=== PATIENT | male | born 1970 | race Caucasian/White ===

== ENCOUNTER 2018-05-18 16:30 | Emergency (ER) | payer BC ==
[2018-05-18] MEDS ORDERED: NS(*) 0.9% 1000 ML BAG 1,000 ML IV ONE (16:41)
[2018-05-18] MEDS ORDERED: KETOROLAC 15 MG/ML VIAL IVP ONE (16:45)
--- NOTE | 2018-05-18 16:51 | ER Report ---
History and Physical Time Seen By MD: 16:39 Hx. of Stated Complaint: PATIENT STATES THAT AROUND 0930 PATIENT STARTED HAVING PAIN AT THE TIP OF HIS PENIS; IT PROGRESSED TO HIS BACK; PAIN HAS GOTTEN WORSE SINCE THEN; PAIN IS AT 9 HPI/ROS Chief Complaint: "kidney stone" HPI: 47-year-old male presents with right sided abdominal and right sided lower back pain. States he has a history of kidney stones and had one last month but that last time the kidney stones have given him this much pain was 19 years ago. Reports the pain started this morning and he felt buring at his penis but the pain has "worked its way up" and he now has abdominal pain and lower right sided back pain. The pain is a 9/10. Associated nausea and vomiting. Reports vomiting 3 times this morning. No treatments tried, no other associated symptoms. ROS: Constitutional: denies fever, chills or night sweats HEENT: denies cough or congestion Respiratory: denies shortness of breath, denies difficulty breathing CV: denies chest pain or palpations GI: denies nausea or vomiting, denies constipation or diarrhea, reports abdominal pain : reports pain with urination, reports burning of the penis Musculoskeletal: reports lower right sided back pain, denies left sided CVA tenderness Allergies: Coded Allergies: No Known Drug Allergies (Unverified , 05/18/18) Home Meds Active Scripts Hydrocodone Bit/Acetaminophen (HYDROCODON-ACETAMINOPHEN 5-325) 1 Each Tablet, 1 EACH PO Q4-6H Y for PAIN for 3 Days, #12 TAB Prov:RA METZP 05/18/18 Tamsulosin Hcl (FLOMAX) 0.4 Mg Cap.er.24h, 0.4 MG PO DAILY for 30 Days, #30 CAP Prov:RA METZP 05/18/18 Ketorolac Tromethamine (KETOROLAC TROMETHAMINE) 10 Mg Tab, 10 MG PO Q6H for 5 Days, #20 TAB Prov:RA METZ [employer]IL [employer]IST[employer] 05/18/18 Ondansetron (ZOFRAN ODT) 4 Mg Tab.rapdis, 4 MG PO Q6H Y for NAUSEA/VOMITING, # 20 TAB.JOSE Prov:RA METZP 05/18/18 Past Medical/Surgical History kidney stones, left knee replacement Reviewed Nurses Notes: Yes Constitutional Vital Sign - Last 24 Hours 05/18/18 05/18/18 05/18/18 05/18/18 16:34 16:35 17:40 18:00 Temp 97.4 Pulse 53 77 Resp 17 B/P (MAP) 143/89 143/89 (107) 132/83 (99) 119/79 (92) Pulse Ox 98 90 O2 Delivery Room Air 05/18/18 18:20 B/P (MAP) 117/74 (88) Intake and Output 05/18/18 05/18/18 05/19/18 15:00 23:00 07:00 Intake Total 1000 ml Balance 1000 ml Physical Exam Physical Examination: General: 47-year-old male passing the room in pain HEENT: normocephalic, atraumatic Respiratory: BL equal respiratory excursion, CTA BL CV: Clear S1 S2, no murmur GI: nondistended, normoactive BS x 4, RLQ tenderness, no suprapubic pain, no left lower or upper quadrant pain Musculoskeletal: moves all extremities Differential Diagnoses: kidney stone, UTI, urinary retention, acute abdomen Medical Decision Making Data Points Result Diagram: 05/18/18 1647 05/18/18 1647 Laboratory Hematology Test 05/18/18 16:47 Red Blood Count 5.01 M/uL (4.00-5.60) Mean Corpuscular Volume 89.5 fL (80.0-96.0) Mean Corpuscular Hemoglobin 31.8 pg (26.0-33.0) Mean Corpuscular Hemoglobin Concent 35.5 g/dL (32.0-36.0) Red Cell Distribution Width 14.1 % (11.5-14.5) Mean Platelet Volume 6.5 fL (7.2-11.1) Neutrophils (%) (Auto) 68.8 % (39.4-72.5) Lymphocytes (%) (Auto) 23.4 % (17.6-49.6) Monocytes (%) (Auto) 6.2 % (4.1-12.4) Eosinophils (%) (Auto) 1.1 % (0.4-6.7) Basophils (%) (Auto) 0.5 % (0.3-1.4) Nucleated RBC Relative Count (auto) 0.1 /100WBC Neutrophils # (Auto) 10.5 K/uL (2.0-7.4) Lymphocytes # (Auto) 3.6 K/uL (1.3-3.6) Monocytes # (Auto) 0.9 K/uL (0.3-1.0) Eosinophils # (Auto) 0.2 K/uL (0.0-0.5) Basophils # (Auto) 0.1 K/uL (0.0-0.1) Nucleated RBC Absolute Count (auto) 0.01 K/uL Erythrocyte Sedimentation Rate 1 mm/HOUR (0-15) Urine Color Yellow Urine Clarity Cloudy Urine pH 5.0 pH (4.8-9.5) Urine Specific [place] 1.018 Urine Protein Negative mg/dL (NEGATIVE) Urine Glucose (UA) Negative mg/dL (NEGATIVE) Urine Ketones 20 mg/dL (NEGATIVE) Urine Blood Large (NEGATIVE) Urine Nitrite Negative (NEGATIVE) Urine Bilirubin Negative (NEGATIVE) Urine Urobilinogen Negative mg/dL (0.2-1.9) Urine Leukocyte Esterase Negative (NEGATIVE) Urine RBC 115 /HPF (0-2/HPF) Urine WBC 1 /HPF (0-5/HPF) Urine Squamous Epithelial Cells Moderate /LPF (</=FEW) Urine Amorphous Crystals Few /HPF Urine Bacteria Few /HPF (NONE-FEW) Urine Mucus Few /HPF (NONE-FEW) Sodium Level 137 mmol/L (137-145) Potassium Level 4.2 mmol/L (3.5-5.0) Chloride Level 101 mmol/L (98-107) Carbon Dioxide Level 23 mmol/L (22-30) Blood Urea Nitrogen 14 mg/dl (9-21) Creatinine 1.00 mg/dl (0.66-1.25) Glomerular Filtration Rate Calc > 60.0 Random Glucose 143 mg/dl (75-110) Calcium Level 8.9 mg/dl (8.4-10.2) Total Bilirubin 1.0 mg/dl (0.2-1.3) Aspartate Amino Transf (AST/SGOT) 31 U/L (0-35) Alanine Aminotransferase (ALT/SGPT) 35 U/L (0-56) Alkaline Phosphatase 77 U/L (0-126) C-Reactive Protein < 0.5 mg/dl (<1.0) Total Protein 7.5 g/dl (6.3-8.2) Albumin 4.3 g/dl (3.5-5.0) Chemistry Test 05/18/18 16:47 White Blood Count 15.3 k/uL (4.5-11.0) Red Blood Count 5.01 M/uL (4.00-5.60) Hemoglobin 15.9 g/dL (14.0-18.0) Hematocrit 44.9 % (42.0-52.0) Mean Corpuscular Volume 89.5 fL (80.0-96.0) Mean Corpuscular Hemoglobin 31.8 pg (26.0-33.0) Mean Corpuscular Hemoglobin Concent 35.5 g/dL (32.0-36.0) Red Cell Distribution Width 14.1 % (11.5-14.5) Platelet Count 280 K/uL (150-450) Mean Platelet Volume 6.5 fL (7.2-11.1) Neutrophils (%) (Auto) 68.8 % (39.4-72.5) Lymphocytes (%) (Auto) 23.4 % (17.6-49.6) Monocytes (%) (Auto) 6.2 % (4.1-12.4) Eosinophils (%) (Auto) 1.1 % (0.4-6.7) Basophils (%) (Auto) 0.5 % (0.3-1.4) Nucleated RBC Relative Count (auto) 0.1 /100WBC Neutrophils # (Auto) 10.5 K/uL (2.0-7.4) Lymphocytes # (Auto) 3.6 K/uL (1.3-3.6) Monocytes # (Auto) 0.9 K/uL (0.3-1.0) Eosinophils # (Auto) 0.2 K/uL (0.0-0.5) Basophils # (Auto) 0.1 K/uL (0.0-0.1) Nucleated RBC Absolute Count (auto) 0.01 K/uL Erythrocyte Sedimentation Rate 1 mm/HOUR (0-15) Urine Color Yellow Urine Clarity Cloudy Urine pH 5.0 pH (4.8-9.5) Urine Specific [place] 1.018 Urine Protein Negative mg/dL (NEGATIVE) Urine Glucose (UA) Negative mg/dL (NEGATIVE) Urine Ketones 20 mg/dL (NEGATIVE) Urine Blood Large (NEGATIVE) Urine Nitrite Negative (NEGATIVE) Urine Bilirubin Negative (NEGATIVE) Urine Urobilinogen Negative mg/dL (0.2-1.9) Urine Leukocyte Esterase Negative (NEGATIVE) Urine RBC 115 /HPF (0-2/HPF) Urine WBC 1 /HPF (0-5/HPF) Urine Squamous Epithelial Cells Moderate /LPF (</=FEW) Urine Amorphous Crystals Few /HPF Urine Bacteria Few /HPF (NONE-FEW) Urine Mucus Few /HPF (NONE-FEW) Glomerular Filtration Rate Calc > 60.0 Calcium Level 8.9 mg/dl (8.4-10.2) Total Bilirubin 1.0 mg/dl (0.2-1.3) Aspartate Amino Transf (AST/SGOT) 31 U/L (0-35) Alanine Aminotransferase (ALT/SGPT) 35 U/L (0-56) Alkaline Phosphatase 77 U/L (0-126) C-Reactive Protein < 0.5 mg/dl (<1.0) Total Protein 7.5 g/dl (6.3-8.2) Albumin 4.3 g/dl (3.5-5.0) Urinalysis Test 05/18/18 16:47 Urine Color Yellow Urine Clarity Cloudy Urine pH 5.0 pH (4.8-9.5) Urine Specific [place] 1.018 Urine Protein Negative mg/dL (NEGATIVE) Urine Glucose (UA) Negative mg/dL (NEGATIVE) Urine Ketones 20 mg/dL (NEGATIVE) Urine Blood Large (NEGATIVE) Urine Nitrite Negative (NEGATIVE) Urine Bilirubin Negative (NEGATIVE) Urine Urobilinogen Negative mg/dL (0.2-1.9) Urine Leukocyte Esterase Negative (NEGATIVE) Urine RBC 115 /HPF (0-2/HPF) Urine WBC 1 /HPF (0-5/HPF) Urine Squamous Epithelial Cells Moderate /LPF (</=FEW) Urine Amorphous Crystals Few /HPF Urine Bacteria Few /HPF (NONE-FEW) Urine Mucus Few /HPF (NONE-FEW) EKG/Imaging Imaging EXAMINATION: CT abdomen and pelvis with IV contrast HISTORY: Flank pain. TECHNIQUE: Axial CT images of the abdomen and pelvis were obtained with IV contrast, with coronal and sagittal 2D reconstructed images. One of the following dose optimization techniques was utilized in the performance of this exam: Automated exposure control; adjustment of the mA and/ or kV according to the patient's size; or use of an iterative reconstruction technique. Specific details can be referenced in the facility's radiology CT exam operational policy. Contrast: 80 mL of IV Isovue-370. COMPARISON: None. FINDINGS: Liver: Fatty infiltration of the liver. Several subcentimeter hypodensities in the liver likely represent small cysts. The hepatic veins and portal veins are patent. Gallbladder and bile ducts: Negative. Spleen: Negative. Pancreas: Negative. Adrenal glands: Negative. Kidneys: Mild hydronephrosis of the right kidney with mild dilatation of the right ureter. There is an obstructing 3 mm calculus in the distal right ureter at the UVJ. There is a delayed right nephrogram compatible with obstructive uropathy. Additional small nonobstructing right renal calculi measuring up to 2 mm. No definite left-sided urinary calculi. The left kidney is negative for hydronephrosis. Bowel and peritoneum: The small bowel and colon are normal in caliber, without evidence of obstruction or any focal inflammatory process. Normal appendix. No free fluid or free intraperitoneal air. Small hiatal hernia. Pelvic structures: Negative. Lymph node assessment: Negative. Vessels: Negative. Musculoskeletal: Negative. Body wall: Negative. Lung bases: Negative. IMPRESSION: 1. Obstructing 3 mm calculus in the distal right ureter at the UVJ, with mild right hydronephrosis. 2. Additional small nonobstructing right renal calculi. 3. No other acute intra-abdominal findings. 4. Normal appendix. 5. Hepatic steatosis. 6. Small hiatal hernia. Report Dictated By: Osmany Martinez MD at 05/18/2018 5:45 PM Report E-Signed By: Osmany Martinez MD at 05/18/2018 5:53 PM ED Course/Re-evaluation ED Course 47-year old male presents to the emergency department with pain in the right lower quadrant and right lower back. States he has a history of kidney stones and this has progressed just like a kidney stone he experienced 19 years ago. Reports his last kidney stone was one month ago but the severity of pain that he is currently having has not been felt since he experienced the kidney stone 19 years ago. History and physical examination obtained. Differential diagnoses considered and discussed with the patient. CBC, CMP, UA, CT of the abdomen obtained. Toradol and morphine administered for pain. Normal Saline 1000mls administered. Labs were unremarkable, patient had an elevated white count, however those likely secondary to stress response. Urinalysis showed large blood with 115 red blood cells per high-power field. CT scan of abdomen and pelvis showed a 3 mm obstructing stone at the UVJ as well as a 2 mm nonobstructing renal calculi. Discussed results with patient. We'll go ahead and discharge patient home. We'll give him Flomax to help pass the stone, pain medication and Zofran to help with nausea and vomiting. Patient is to follow-up with his urologist when he returns home to [place]. Patient verbalized understanding and agreement with plan. Decision to Disposition Date: May 18, 2018 Decision to Disposition Time: 18:17 Depart Departure Latest Vital Signs Vital Signs Date Time Temp Pulse Resp B/P (MAP) Pulse Ox O2 Delivery O2 Flow Rate FiO2 05/18/18 18:20 117/74 (88) 05/18/18 18:00 77 90 05/18/18 16:34 97.4 17 Room Air Impression: Primary Impression: Kidney stones Condition: Improved Disposition: HOME OR SELF-CARE New Scripts Hydrocodone Bit/Acetaminophen (HYDROCODON-ACETAMINOPHEN 5-325) 1 Each Tablet 1 EACH PO Q4-6H Y for PAIN for 3 Days, #12 TAB Prov: RA METZ 05/18/18 Tamsulosin Hcl (FLOMAX) 0.4 Mg Cap.er.24h 0.4 MG PO DAILY for 30 Days, #30 CAP Prov: RA METZ 05/18/18 Ketorolac Tromethamine (KETOROLAC TROMETHAMINE) 10 Mg Tab 10 MG PO Q6H for 5 Days, #20 TAB Prov: RA METZ 05/18/18 Ondansetron (ZOFRAN ODT) 4 Mg Tab.rapdis 4 MG PO Q6H Y for NAUSEA/VOMITING, #20 TAB.JOSE Prov: RA METZ 05/18/18 Patient Instructions: Kidney Stones (ED) Additional Instructions: Take Flomax daily unitl the stone passes. Take Toradol as need for pain. Take hydrocodone for severe pain but do not drive while taking this medication. Hydrate well with water. Avoid taking medications like Tums. Return to the emergency department if your condition worsens. RA METZ May 18, 2018 16:51
[2018-05-18 16:56] LABS: PLATELET COUNT, AUTOMATED 280 K/uL (150-450)
[2018-05-18] MEDS ORDERED: MORPHINE 4 MG/ML SDV IVP ONE (17:05)
[2018-05-18] MEDS ORDERED: IOPAMIDOL 76% 100 ML INFUS BTL 100 ML ONE (17:05)
[2018-05-18] MEDS ORDERED: ONDANSETRON 4 MG/2 ML VIAL IVP ONE (17:35)
--- NOTE | 2018-05-18 17:56 | RADIOLOGY IMAGING REPORT ---
FACILITY: [facility] [place] PATIENT NAME: Surendra Avila : 1970 MR: [id number] V: [id number] EXAM DATE: ORDERING PHYSICIAN: RA METZ TECHNOLOGIST: Location: [facility] [place] Patient: Surendra Avila : 1970 Visit/Account:[id number] Date of Sevice: 05/18/2018 EXAMINATION: CT abdomen and pelvis with IV contrast HISTORY: Flank pain. TECHNIQUE: Axial CT images of the abdomen and pelvis were obtained with IV contrast, with coronal a nd sagittal 2D reconstructed images. One of the following dose optimization techniques was utilized in the performance of this exam: Autom ated exposure control; adjustment of the mA and/or kV according to the patient's size; or use of an i terative reconstruction technique. Specific details can be referenced in the facility's radiology C T exam operational policy. Contrast: 80 mL of IV Isovue-370. COMPARISON: None. FINDINGS: Liver: Fatty infiltration of the liver. Several subcentimeter hypodensities in the liver likely repr esent small cysts. The hepatic veins and portal veins are patent. Gallbladder and bile ducts: Negative. Spleen: Negative. Pancreas: Negative. Adrenal glands: Negative. Kidneys: Mild hydronephrosis of the right kidney with mild dilatation of the right ureter. There is an obstructing 3 mm calculus in the distal right ureter at the UVJ. There is a delayed right nephrogr am compatible with obstructive uropathy. Additional small nonobstructing right renal calculi measurin g up to 2 mm. No definite left-sided urinary calculi. The left kidney is negative for hydronephrosis. Bowel and peritoneum: The small bowel and colon are normal in caliber, without evidence of obstructi on or any focal inflammatory process. Normal appendix. No free fluid or free intraperitoneal air. Sma ll hiatal hernia. Pelvic structures: Negative. Lymph node assessment: Negative. Vessels: Negative. Musculoskeletal: Negative. Body wall: Negative. Lung bases: Negative. IMPRESSION: 1. Obstructing 3 mm calculus in the distal right ureter at the UVJ, with mild right hydronephrosis. 2. Additional small nonobstructing right renal calculi. 3. No other acute intra-abdominal findings. 4. Normal appendix. 5. Hepatic steatosis. 6. Small hiatal hernia. Report Dictated By: Osmany Martinez MD at 05/18/2018 5:45 PM Report E-Signed By: Osmany Martinez MD at 05/18/2018 5:53 PM WSN:[id number]
[2018-05-18] MEDS ORDERED: KETOROLAC TROM 10 MG TAB TH PO ONE (18:10)
[2018-05-18] MEDS ORDERED: ONDANSETRON 4 MG ODT TH SL ONE (18:10)
[2018-05-18] MEDS ORDERED: TAMSULOSIN HCL 0.4 MG CAP PO ONE (18:10)
[2018-05-18] MEDS ORDERED: ACET/HYDROC 5/325MG TH ER ONLY 2 TAB/BOTTLE PO ONE (18:10)
[2018-05-18] MEDS ORDERED: ONDA4TAB PO (18:15)
[2018-05-18] MEDS ORDERED: KET10 PO (18:15)
[2018-05-18] MEDS ORDERED: HYDR-385 PO (18:15)
[2018-05-18] MEDS ORDERED: TAMS0.4C25 PO (18:15)
[2018-05-18 18:20] VITALS: BP 117/74
== END 2018-05-18 18:36 | disposition home or self-care (01) ==
LOC: ER 16:35
DX: N20.0 Calculus of kidney (principal)
CPT/HCPCS: 74177; 81001; 85025; 85651; 86140; 96361; 96374; 96375; 99284; J1885; J2270; J2405; J7030; Q9967; S0119; 82040; 82247; 82310; 82374; 82435; 82565; 82947; 84075; 84132; 84155; 84295; 84450; 84460; 84520